=== PATIENT | female | born 1970 | race American Indian/Alaskan Native ===

== ENCOUNTER 2017-05-03 10:38 | Emergency (ER) | payer OTHER ==
[2017-05-03 11:32] LABS: Basophils % (Auto) 0.6 % (0.0-1.8); Eosinophils % (Auto) 4.9 % (0.0-4.3); Hematocrit 33.4 % (30.3-42.9); Hemoglobin 10.3 gm/dl (10.1-14.3); Mean Corpuscular HGB Conc 31 % (30-34); Platelet Count 354 K/mm3 (140-440); Red Blood Count 5.07 M/mm3 (3.65-5.03)
--- NOTE | 2017-05-03 11:45 | Emergency Department Report ---
ED Chest Pain HPI - General Chief Complaint: Chest Pain Stated Complaint: CHEST PAIN Time Seen by Provider: 05/03/17 11:12 Source: patient Mode of arrival: Stretcher Limitations: No Limitations - History of Present Illness Initial Comments: 47-year-old female here with complaint of chest pain that started last night. Patient states that she has some pain in the center chest radiates to the back. It is worse with deep breath. She has no known history of CAD or any respiratory issues. She is a known hypertensive but otherwise has no coronary risk factors. She has no family history of CAD. She is a nonsmoker. Denies fevers chills nausea vomiting. Denies shortness of breath with chest pain. -: Sudden Pain Location: substernal Quality: aching Worsens With: nothing re: vomting. denies: nausea, diaphoresis, dyspnea - Related Data Previous Rx's Medication Instructions Recorded Last Taken Type Omeprazole Magnesium [PriLOSEC Otc] 20 mg PO BID #60 tab 05/03/17 Unknown Rx Ranitidine HCl [Zantac 150 MG TAB] 150 mg PO BID #60 tablet 05/03/17 Unknown Rx Allergies Allergy/AdvReac Type Severity Reaction Status Date / Time No Known Allergies Allergy Unverified 05/03/17 11:05 Heart Score - HEART Score History: Slightly suspicious EKG: Non-specific Age: 45-65 Risk factors: 1-2 risk factors Troponin: < normal limit HEART Score: 3 - Critical Actions Critical Actions: 0-3 pts:0.9-1.7%risk of adverse cardiac event.Candidate for discharge ED Review of Systems ROS: Stated complaint: CHEST PAIN Other details as noted in HPI Comment: All other systems reviewed and negative Constitutional: denies: chills, fever Eyes: denies: eye pain, eye discharge, vision change ENT: denies: ear pain, throat pain Respiratory: denies: cough, shortness of breath, wheezing Cardiovascular: chest pain. denies: palpitations Endocrine: no symptoms reported Gastrointestinal: denies: abdominal pain, nausea, diarrhea Genitourinary: denies: urgency, dysuria, discharge Musculoskeletal: denies: back pain, joint swelling, arthralgia Skin: denies: rash, lesions Neurological: denies: headache, weakness, paresthesias Psychiatric: denies: anxiety, depression Hematological/Lymphatic: denies: easy bleeding, easy bruising ED Past Medical Hx - Past Medical History Previous Medical History?: Yes Hx Hypertension: Yes - Surgical History Past Surgical History?: Yes Additional Surgical History: Tubal ligation - Family History Family history: no significant - Social History Smoking Status: Never Smoker Substance Use Type: None - Medications Home Medications: Home Medications Medication Instructions Recorded Confirmed Last Taken Type Omeprazole Magnesium [PriLOSEC Otc] 20 mg PO BID #60 tab 05/03/17 Unknown Rx Ranitidine HCl [Zantac 150 MG TAB] 150 mg PO BID #60 tablet 05/03/17 Unknown Rx ED Physical Exam - General Limitations: No Limitations General appearance: alert, in no apparent distress - Head Head exam: Present: atraumatic, normocephalic - Eye Eye exam: Present: normal appearance. Absent: scleral icterus, conjunctival injection, nystagmus - ENT ENT exam: Present: mucous membranes moist - Neck Neck exam: Present: normal inspection. Absent: tenderness, meningismus - Respiratory Respiratory exam: Present: normal lung sounds bilaterally. Absent: respiratory distress - Cardiovascular Cardiovascular Exam: Present: regular rate, normal rhythm. Absent: systolic murmur, diastolic murmur, rubs, gallop - GI/Abdominal GI/Abdominal exam: Present: soft, normal bowel sounds - Extremities Exam Extremities exam: Present: normal inspection - Back Exam Back exam: Present: normal inspection - Neurological Exam Neurological exam: Present: alert, oriented X3 - Psychiatric Psychiatric exam: Present: normal affect, normal mood - Skin Skin exam: Present: warm, dry, intact, normal color. Absent: rash ED Medical Decision Making - Lab Data Result diagrams: 05/03/17 11:22 05/03/17 11:22 Laboratory Results - last 24 hr 05/03/17 05/03/17 05/03/17 11:22 11:22 11:48 WBC 10.0 RBC 5.07 H Hgb 10.3 Hct 33.4 MCV 66 L MCH 20 L MCHC 31 RDW 20.7 H Plt Count 354 Lymph % (Auto) 22.6 Gr[place]gs % (Auto) 7.4 H Eos % (Auto) 4.9 H Baso % (Auto) 0.6 Lymph # 2.3 Gr[place]gs # 0.7 Eos # 0.5 H Baso # 0.1 Seg Neutrophils % 64.5 Seg Neutrophils # 6.5 D-Dimer 659.19 H Sodium 138 Potassium 4.0 Chloride 99.3 Carbon Dioxide 26 Anion Gap 17 BUN 13 Creatinine 0.8 Estimated GFR > 60 BUN/Creatinine Ratio 16.25 Glucose 104 H Calcium 9.2 Troponin T < 0.010 05/03/17 13:56 WBC RBC Hgb Hct MCV MCH MCHC RDW Plt Count Lymph % (Auto) Griggs % (Auto) Eos % (Auto) Baso % (Auto) Lymph # Griggs # Eos # Baso # Seg Neutrophils % Seg Neutrophils # D-Dimer Sodium Potassium Chloride Carbon Dioxide Anion Gap BUN Creatinine Estimated GFR BUN/Creatinine Ratio Glucose Calcium Troponin T < 0.010 - EKG Data -: EKG Interpreted by Me - EKG Data 05/03/17 14:37 Sinus 70 and normal axis normal intervals no ST-T wave changes - Radiology Data Radiology results: report reviewed, image reviewed - Medical Decision Making 47-year-old female here with chest pain. Describes the pain aching and worse with deep breath. She hasn't no significant CAD risk factors and no significant PE risk factors. Her EKG is nonspecific. Plan check labs chest x- ray and plan to get d-dimer. If negative will discharge. If positive we will scan for PE. D-dimer 600. CT PE scan ordered and negative. Patient did have some incidental findings including some distal esophageal thickening. Plan to discharged patient home on PPI and H2 librado. Portions of this chart were dictated with dictation software. There may be dictation errors contained within this note. Critical care attestation.: If time is entered above; I have spent that time in minutes in the direct care of this critically ill patient, excluding procedure time. ED Disposition Clinical Impression: Chest pain, GERD (gastroesophageal reflux disease) Disposition: DC- TO HOME OR SELFCARE Is pt being admited?: No Condition: Stable Instructions: Chest Pain (ED) Prescriptions: Omeprazole Magnesium [PriLOSEC Otc] 20 mg PO BID #60 tab Ranitidine HCl [Zantac 150 MG TAB] 150 mg PO BID #60 tablet
[2017-05-03 11:47] LABS: Mean Corpuscular Hemoglobin 20 pg (28-32); Mean Corpuscular Volume 66 fl (79-97); Red Cell Distribution Width 20.7 % (13.2-15.2)
[2017-05-03 11:51] LABS: Anion Gap 17 mmol/L; BUN/Creatinine Ratio 16.25; Blood Urea Nitrogen 13 mg/dL (7-17); Calcium 9.2 mg/dL (8.4-10.2); Carbon Dioxide 26 mmol/L (22-30); Chloride 99.3 mmol/L (98-107); Glucose 104 mg/dL (65-100); Sodium 138 mmol/L (137-145)
--- NOTE | 2017-05-03 12:19 | XRay Report ---
PORTABLE CHEST: Chest pain. An AP portable view of the chest demonstrates a normal cardiac contour considering the limits of this technique. The lungs are clear with no evidence of infiltrate, fluid or failure. IMPRESSION: Normal portable chest.
[2017-05-03] MEDS ORDERED: NACL ONE (13:40)
--- NOTE | 2017-05-03 14:15 | Cat Scan Report ---
CTA CHEST INDICATION: Chest pain, evaluate for pulmonary embolism. COMPARISON: None similar. FINDINGS: Chest CTA performed following intravenous administration of 100 cc of Omnipaque 350. Rotational MIP's also obtained. Top normal heart size. No effusions. No aortic aneurysm, dissection or suspicious pulmonary arterial filling defects. No size significant adenopathy. Normal airway. Normal size thyroid with a tiny calcification on the left posteriorly. Clear lungs. Nonspecific distal esophageal wall prominence/thickening, not excluded for gastroesophageal reflux and/or hiatal hernia, amongst others. Images through included upper abdomen reveal no significant abnormality. Multilevel mid to lower thoracic spine degenerative spurring. CONCLUSION: No CT evidence of pulmonary embolism with few incidental findings, as above. Thank you for the opportunity to participate in this patient's care.
[2017-05-03 15:30] VITALS: BP 138/90
== END 2017-05-03 15:30 | disposition home or self-care (01) ==
LOC: ED 10:38
DX: K21.9 Gastro-esophageal reflux disease without esophagitis (principal); R07.9 Chest pain, unspecified; I10 Essential (primary) hypertension
CPT/HCPCS: 36415; 71010; 71275; 80048; 84484; 85025; 85379; 93005; 93010; 99285; Q9967